=== PATIENT | male | born 2000 | race Two or more races ===

== ENCOUNTER 2022-07-05 15:27 | Emergency (ER) | payer MEDICAID, OTHER ==
[~2022-07-05] VITALS: Ht 180.3 cm; Wt 77.0 kg
[2022-07-05] MEDS ORDERED: fentaNYL CITRATE 100 MCG/2 ML VL IM ONE (16:45)
[2022-07-05] MEDS ORDERED: ONDANSETRON ODT 4 MG TAB PO ONE (16:45)
[2022-07-05 18:00] VITALS: BP 111/51
[2022-07-05] MEDS ORDERED: NAP500T PO (18:20)
== END 2022-07-05 17:55 | disposition home or self-care (01) ==
LOC: ER 15:27
DX: S43.085A Other dislocation of left shoulder joint, initial encounter (principal); M75.92 Shoulder lesion, unspecified, left shoulder; X58.XXXA Exposure to other specified factors, initial encounter; Y93.89 Activity, other specified; Y92.89 Other specified places as the place of occurrence of the external cause; Y99.8 Other external cause status
CPT/HCPCS: 23650; 73030; 96372; 99284; J3010; Q0162

== ENCOUNTER 2022-07-11 19:17 | Emergency (ER) | payer MEDICAID, OTHER ==
[~2022-07-11] VITALS: Ht 177.8 cm; Wt 79.1 kg
[~2022-07-11 19:17] MED LIST: NAP500T PO
[2022-07-11] MEDS ORDERED: KETOROLAC TROMETH 30 MG/ML 1ML VIAL IM ONE (21:30)
[2022-07-11 21:49] VITALS: BP 118/63
== END 2022-07-11 21:51 | disposition home or self-care (01) ==
LOC: ER 19:17
DX: M54.50 Low back pain, unspecified (principal); R07.81 Pleurodynia; V43.52XA Car driver injured in collision with other type car in traffic accident, initial encounter; Y93.89 Activity, other specified; Y92.89 Other specified places as the place of occurrence of the external cause; Y99.8 Other external cause status
CPT/HCPCS: 71111; 72070; 72100; 96372; 99284; J1885

== ENCOUNTER 2024-07-14 12:38 | Emergency (ER) | payer MEDICAID ==
[~2024-07-14] VITALS: Ht 175.3 cm; Wt 99.1 kg
--- NOTE | 2024-07-14 13:09 | ED.PDOC ---
Musculoskeletal HPI Comments HPI: VITALS: Temp: BP: HR: RR: SPO2: Past medical history: Past surgical history: HPI: Poor Historian. 23-year-old male presents to emergency department for evaluation of recurrent l eft shoulder dislocation. Patient has popped his shoulder out this morning when he was trying to put his shirt on. Denies any acute numbness or tingling sensation. Patient is neurovascularly intact in the affected extremity. The radial pulses palpable. 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 Decreased range of motion of the left shoulder joint secondary to pain. Past Medical History: Past Surgical History: REVIEW OF SYSTEMS: CONSTITUTIONAL: Denies acute: fever, diaphoresis, chills, generalized weakness. HEAD: Denies acute: headache, photophobia Eyes: Denies acute: Double vision, vision loss, eye pain, eye discharge. EARS: Denies acute: tinnitus, hearing loss, ear discharge, ear pain, THROAT: Denies acute: sore throat, swelling, difficulty swallowing , pain with swallowing, change in voice. NECK: Denies acute: neck pain, neck swelling, stiff neck. HEART: Denies acute : chest pain, palpitations, LUNGS: Denies acute: SOB, wheezing, cough, hemoptysis ABDOMEN: Denies acute: abdominal pain, Nausea, Vomiting, diarrhea, melena , hematemesis, hematochezia SKIN: Denies acute: rash, redness, lesions, itchiness. EXTREMITIES: Denies acute: calf pain, numbness, tingling, weakness, Denies acute: Low back pain. Neuro: Denies acute: focal neurological deficit, motor or sensory focal neurological deficit, tremors, seizure like activity, confusion, dizziness, change in mental status, loss of bowel or bladder function, cauda equina like symptoms. : Denies acute: dysuria, hematuria, flank pain, increase in urinary frequency. PSYCH: Denies acute: hallucination, suicidal ideation, homicidal ideation. PHYSICAL EXAM: General: ----mild----acute distress, awake and alert. Head: normocephalic, atraumatic. Neck: supple, trachea is midline, no swelling. Throat: Normal phonation. Eyes:, no erythema, no purulent discharge, no proptosis, no icterus. Heart: regular rate, regular rhythm, no significant murmur appreciated. Lungs: no apparent respiratory distress, Able to speak in full sentences. No wheezing, no rhonchi, no crackles. No stridors Clear to auscultation bilaterally. Abdomen: non tender to palpation, non distended, soft, no guarding, no rebound, + bowel sounds. Neuro: Awake, Alert, oriented to name, self, situation, follows commands GCS=15. Speech is normal. Skin: no petechia, no purpura, no cyanosis, non-pale, not jaundice. Lower extremities: --no - Pitting edema no deformity, no focal swelling, no calf TTP. Makes eye contact. moves all four extremities. Face: no apparent facial droop. Ambulating in the ED independently. ED COURSE: Chief Complaint: Upper Extremity Time Seen by MD: 12:50 Primary Care Provider: XAVIER Tripp Notes: Nurses Notes, Allergies Allergies: Coded Allergies: NO KNOWN ALLERGIES (Unverified , 07/05/22) Home Meds Active Scripts Naproxen (NAPROSYN TABLET) 500 Mg Tb, 1 TAB PO BID PRN for 10 Days, #20 TAB Prov:JAYSON COLE MD 07/05/22 Mode of Arrival: Ambulatory Location: Left Was a procedure done? Was a procedure done?: Yes Sedation Sedation?: No Reduction Indication: Dislocation Sedation: Consents obtained, Sedation as ordered (100 mcg fentanyl ) Intra-articular anesthetic hortensia: No Post-reduction x-ray show: Reduction (left shoulder/humerus), Good Alignment Informed consent obtained: Yes Risks/benefits/alt described: Yes Differential Diagnosis EXT Differential Diagnosis: Deep Vein Thrombosis, Compartment Syndrome, Fracture, Sprain, Dislocation, Gout, DJD, Contusion, Strain, Rheumatoid, Septic, Hernia, Neurovascular injury, Arthritis, Bursitis, Other (hematoma) X-Ray, Labs, Meds, VS Vital Signs Date Time Temp Pulse Resp B/P (MAP) Pulse Ox O2 Delivery O2 Flow Rate FiO2 07/14/24 15:00 88 20 119/66 (83) 97 07/14/24 13:33 140/70 07/14/24 13:15 78 24 95 Room Air* 0 21 07/14/24 13:15 98.6 78 24 140/70 (93) 95 98.6 07/14/24 12:47 98.7 84 18 143/83 (103) 96 98.7 Current Medications Medications (Trade) Dose Ordered Sig/Reji Route Start Time Stop Time Status Last Admin Fentanyl Citrate 100 mcg ONCE ONCE IV 07/14/24 13:15 07/14/24 13:16 DC 07/14/24 13:33 [place] [address] Ph: [phone] DIAGNOSTIC IMAGING Diagnostic Imaging Report : [id number] Signed PATIENT: NAE GREENBERG ACCT: [id number] UNIT: [id number] : 2000 LOC: ER ROOM / BED: / AGE / SEX: 23 / M ADM STATUS: REG ER SERVICE 135 ORDERING PHYSICIAN: PAULA LANDERS DO PROCEDURE(s): LSHD - L SHOULDER 1V XRAY REASON: POST REDUCTION ORDER NUMBER(s): [id number], ACCESSION NUMBER(s): [id number] EXAM: XY L SHOULDER 1V XRAY CLINICAL INDICATION: POST REDUCTION TECHNIQUE: XY L SHOULDER 1V XRAY Comparison: XY L SHOULDER 1V XRAY on DOS: 07/14/24, XY L SHOULDER 2+ VIEW XRAY on DOS: 09/08/23, XY L SHOULDER 2+ VIEW XRAY on DOS: 07/05/22, XY L SHOULDER 2+ VIEW XRAY on DOS: 07/05/22 FINDINGS/IMPRESSION: There is no evidence of acute fracture or dislocation. The visualized joint space is well maintained. The alignment is anatomical. There is no radiopaque foreign body. ATED BY: BRET CUMMINS MD DICTATED DATE/TIME: 07/14/241421 SIGNED BY: BRET CUMMINS MD SIGNED DATE/TIME: 07/14/241421 CC: [address] [address] Ph: [phone] DIAGNOSTIC IMAGING Diagnostic Imaging Report : [id number] Signed PATIENT: NAE GREENBERG ACCT: [id number] UNIT: [id number] : 2000 LOC: ER ROOM / BED: / AGE / SEX: 23 / M ADM STATUS: REG ER SERVICE [id number] ORDERING PHYSICIAN: PAULA LANDERS DO PROCEDURE(s): LSHD - L SHOULDER 1V XRAY REASON: LEFT SHOULDER PAIN R/O DISLOCATION ORDER NUMBER(s): [id number], ACCESSION NUMBER(s): [id number] XY L SHOULDER 1V XRAY INDICATION: LEFT SHOULDER PAIN R/O DISLOCATION TECHNICAL DATA: 2 views were obtained of the right shoulder. COMPARISON: XY L SHOULDER 2+ VIEW XRAY on DOS: 09/08/23, XY L SHOULDER 2+ VIEW XRAY on DOS: 07/05/22, XY L SHOULDER 2+ VIEW XRAY on DOS: 07/05/22 FINDINGS: Anterior/inferior left shoulder dislocation. The acromioclavicular joint appears normal. The humeral head is not high riding. Adjacent soft tissues are within normal limits. IMPRESSION: Anterior/inferior left shoulder dislocation. ATED BY: VLADISLAV SEO MD DICTATED DATE/TIME: 07/14/241316 SIGNED BY: VLADISLAV SEO MD SIGNED DATE/TIME: 07/14/241316 CC: Time of 1ST Reevaluation: 13:20 Reevaluation 1ST: Unchanged Time of 2ND Reevaluation: 00:00 Reevaluation 2ND: Resolved Patient Education/Counseling: Diagnosis, Treatment Family Education/Counseling: No Family Present Comments Patient presented with the above HPI.---left shoulder pain dislocation---workup was initiated. patient was found with the above mentioned diagnosis. the following medications were ordered: please refer to order lists of meds and tests obtained by myself Dr. Landers. Patient ED course and VS have been stabilized. Patient has been reassessed in the ED and remained in a stable condition. Pertinent incidental findings were discussed with the patient and/or family. Patient/family voices understanding and is agreeable with plan. Patient has been observed in the ED adequate length of time to insure improvement/stability. Escalation of care considered: Consideration of escalation to observation or admission Reduction of a closed left shoulder dislocation was performed after fentanyl was given. Patient tolerated procedure well. Shoulder sling was applied. Patient was supposed to follow up orthopedic surgery but failed to follow up due to insurance problems. He says he now has insurance and will follow up with the orthopedic doctor. Patient was DISCHARGED home in a stable condition. All the reports of any imaging studies that were ordered by myself were reviewed by myself. Departure 1 Departure Time of Disposition: 14:46 Impression: Primary Impression: Anterior dislocation of left shoulder Disposition: HOME / SELF CARE / HOMELESS Condition: Stable Additional Instructions: Additional discharge instructions: You MUST follow-up with your primary care/family doctor in 1 to 2 days. If you are unable to see your primary care/family doctor, please return to our emergency room for re-assessment and re-evaluation in 1 to 2 days. Return to the emergency room here in our facility or to the nearest ER [facility] if your symptoms change or worsen. CONSULTATIONS: you MUST Follow-up for consultation as soon as possible with: -orthopedic doctor in 1-2 days. Please call for appointment You MUST call the consultants office yourself to make an appointment. You may need to arrange that through your insurance and/or your primary/family doctor. If you are unable to see the medical social consultant in 1 to 2 days, you must return to our emergency room (or any other ER of your choice) for re-assessment and re- evaluation. Adequate fluid hydration. Continue wearing the shoulder sling until you see the orthopedic doctor. Discharged With: Self Critical Care Note Critical Care Time?: No Heart Score Heart Score: Heart Score Response (Comments) Value History N/A 0 EKG N/A 0 Age N/A 0 Risk Factors N/A 0 Troponin N/A 0 Total 0 I personally scribed for PAULA LANDERS DO ([email or web address]) on 07/14/24 at 13:09. Electronically submitted by Janene Jackson ([email or web address]). I personally scribed for PAULA LANDERS DO ([email or web address]) on 07/14/24 at 16:03. Electronically submitted by Janene Jackson ([email or web address]). I personally scribed for PAULA LANDERS DO ([email or web address]) on 07/14/24 at 16:15. Electronically submitted by Janene Jackson ([email or web address]). PAULA LANDERS DO Jul 14, 2024 13:09
[2024-07-14 13:15] VITALS: PULSE 78; RESP 24; TEMP 98.6; O2SAT 95
--- NOTE | 2024-07-14 13:19 | DVH ---
XY L SHOULDER 1V XRAY INDICATION: LEFT SHOULDER PAIN R/O DISLOCATION TECHNICAL DATA: 2 views were obtained of the right shoulder. COMPARISON: XY L SHOULDER 2+ VIEW XRAY on DOS: 09/08/23, XY L SHOULDER 2+ VIEW XRAY on DOS: 07/05/22, X Y L SHOULDER 2+ VIEW XRAY on DOS: 07/05/22 FINDINGS: Anterior/inferior left shoulder dislocation. The acromioclavicular joint appears normal. The humeral head is not high riding. Adjacent soft tissues are within normal limits. IMPRESSION: Anterior/inferior left shoulder dislocation.
[2024-07-14] MEDS: fentaNYL CITRATE 100 MCG/2 ML VL IV ONE (13:33)
--- NOTE | 2024-07-14 14:24 | DVH ---
EXAM: XY L SHOULDER 1V XRAY CLINICAL INDICATION: POST REDUCTION TECHNIQUE: XY L SHOULDER 1V XRAY Comparison: XY L SHOULDER 1V XRAY on DOS: 07/14/24, XY L SHOULDER 2+ VIEW XRAY on DOS: 09/08/23, XY L SH OULDER 2+ VIEW XRAY on DOS: 07/05/22, XY L SHOULDER 2+ VIEW XRAY on DOS: 07/05/22 FINDINGS/IMPRESSION: There is no evidence of acute fracture or dislocation. The visualized joint space is well maintained. The alignment is anatomical. There is no radiopaque foreign body.
[2024-07-14 15:00] VITALS: BP 119/66; PULSE 88; RESP 20; O2SAT 97
== END 2024-07-14 15:45 | disposition home or self-care (01) ==
LOC: ER 12:45
DX: S43.015A Anterior dislocation of left humerus, initial encounter (principal)
CPT/HCPCS: 23650; 73020; 99284; J3010